=== PATIENT | female | born 1975 | race African-American/Black ===

== ENCOUNTER 2024-10-06 13:31 | Emergency (ER) | payer OTHER ==
[~2024-10-06] VITALS: Ht 167.6 cm; Wt 65.3 kg
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
[2024-10-06 17:01] LABS: Basophils # (auto) 0.1 10 ^3/uL (0-0.2); Eosinophils # (auto) 0 10 ^3/uL (0-0.8); Eosinophils % (auto) 0.7 % (0.0-7.0); Hematocrit 39.2 % (36.0-46.0); Hemoglobin 13.1 g/dL (12.2-16.2); Lymphocytes % (auto) 28.8 % (10.0-50.0); Mean Corpuscular Hemoglobin 27.5 pg (28.0-32.0); Mean Corpuscular Hgb Conc. 33.5 g/dL (32.0-36.0); Mean Corpuscular Volume 82.2 fL (80.0-100.0); Monocytes # (auto) 0.4 10 ^3/uL (0-1.3); Neutrophils # (auto) 4.5 10 ^3/uL (1.6-8.6); Neutrophils % (auto) 63.5 % (37.0-80.0); Nucleated Red Blood Cells % 0.1 %; Platelet Count (auto) 335 10^3/uL (140-450); Red Blood Cells 4.77 10^6/uL (4.0-5.20); Red Cell Distribution Width 13.1 % (11.8-14.3); White Blood Cell 7.1 10^3/uL (4.4-10.8)
[2024-10-06 17:10] LABS: Anion Gap 7 (5-15); Carbon Dioxide 26 mmol/L (20-31); Sodium 140 mmol/L (136-145)
[2024-10-06 17:11] LABS: Calcium 9.7 mg/dL (8.7-10.4)
[2024-10-06 17:16] LABS: BUN/Creatinine Ratio 12.1 (10.0-20.0); Blood Urea Nitrogen 11 mg/dL (9-23); Chloride 107 mmol/L (98-107); Glucose 99 mg/dL (74-106)
[2024-10-06 19:40] VITALS: BP 119/84; PULSE 78; RESP 18; TEMP 97.5; O2SAT 98
--- NOTE | 2024-10-08 07:11 | ECG ---
[facility] Test Date: 2024-10-06 Test Time: 14:34:12 Pat Name: YUMI MOORE Department: ER Room: Gender: F Lead Teacher: : 1975 Requested By: ARLETH MILIAN Order Number: [id number] Reading MD: Noe West Measurements Intervals [place] Rate: 80 P: 71 NH: 170 QRS: 82 QRSD: 75 T: 69 QT: 348 QTc: 402 Interpretive Statements Sinus rhythm Electronically Signed On 10-08-2024 18:42:32 PDT by Noe West Please click the below link to view image of tracing.
== END 2024-10-07 00:20 | disposition home or self-care (01) ==
LOC: ER 13:31
DX: T59.811A Toxic effect of smoke, accidental (unintentional), initial encounter (principal); Y92.89 Other specified places as the place of occurrence of the external cause
CPT/HCPCS: 36415; 36600; 71046; 80048; 82805; 85025; 93005

== ENCOUNTER 2024-10-08 09:45 | Emergency (ER) | payer OTHER ==
[~2024-10-08] VITALS: Ht 167.6 cm; Wt 64.5 kg
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
--- NOTE | 2024-10-08 10:38 | DVH ---
RIGHT Upper Extremity Venous Duplex Clinical History: PAIN Comparison: None Findings: Duplex Doppler evaluation of the venous system of the RIGHT lower neck and upper extremity including color Doppler and spectral/pulsed waveform analysis was performed. The internal jugular vein demonstrates appropriate compressibility and waveform variability. The subclavian vein is patent on color Doppler evaluation without intraluminal thrombus and demonstra luan waveform variability. The visualized portion of the brachiocephalic vein is patent on color Doppler evaluation without intr aluminal thrombus and demonstrates waveform variability. The axillary vein demonstrates appropriate compressibility and waveform variability. The brachial veins demonstrate appropriate compressibility and patency on Doppler evaluation. The basilic vein demonstrates appropriate compressibility and patency on Doppler evaluation. The cephalic vein demonstrates appropriate compressibility and patency on Doppler evaluation. Impression: No venous thrombus identified in the RIGHT upper extremity vessels evaluated above. If clinical concern/symptoms persist or worsen, short-interval follow-up study is suggested.
[2024-10-08 11:18] VITALS: BP 138/77; PULSE 81; RESP 16; TEMP 97.8; O2SAT 99
== END 2024-10-08 11:21 | disposition home or self-care (01) ==
LOC: ER 09:45
DX: M79.601 Pain in right arm (principal); Z98.890 Other specified postprocedural states
CPT/HCPCS: 93971